=== PATIENT | female | born 1980 ===

== ENCOUNTER → 2024-01-11 01:13 | Outpatient (CLI) | payer OTHER, SELFPAY ==
[2024-01-11] MEDS: Normal Saline Flush 10 ML SYR IVP (15:05)
[2024-01-11] MEDS: Gadoterate meglumine 20 ML SYRINGE IVP (15:05)
--- NOTE | 2024-01-11 15:20 | DI.MRI_ITS ---
Exam(s) MR ANGIO BRAIN WO CLINICAL HISTORY: BENIGN INTRACRANIAL HYPERTENSION,G93.2. TECHNIQUE: 3D [id number] study was performed without contrast. COMPARISON: None. FINDINGS: Carotid Arteries: Petrous: Normal. Cavernous: Normal. Cerebral: Normal. Middle Cerebral Arteries: Right: No aneurysm or significant stenosis. Left: No aneurysm or significant stenosis. Anterior Cerebral Arteries: Right: No aneurysm or significant stenosis. Left: No aneurysm or significant stenosis. Posterior cerebral arteries: Right: No aneurysm or significant stenosis Left: No aneurysm or significant stenosis Vertebral Arteries: Right: No aneurysm or significant stenosis. No dissection. Left: No aneurysm or significant stenosis. No dissection.. Basilar Artery: No aneurysm or significant stenosis. Small Vessels: No evidence of beading. IMPRESSION: Normal MRA examination of the [place]. DATA REPOSITORY:
--- NOTE | 2024-01-11 16:00 | DI.MRI_ITS ---
Exam(s) MR BRAIN WO/W EXAM: MR BRAIN WO/W CLINICAL HISTORY: BENIGN INTRACRANIAL HYPERTENSION,G93.2. TECHNIQUE: Multiplanar multisequence MRI of the brain was performed. CONTRAST MATERIAL: IV Contrast: 20 ML of Dotarem contrast administered. COMPARISON: MR MR ANGIO BRAIN WO from 01/11/2024 FINDINGS: Exam mildly limited by motion. VENTRICLES AND EXTRA AXIAL SPACES: Mild ventricular asymmetry, within normal limits of variation. HEMORRHAGE: None. CEREBRAL PARENCHYMA: No focus of restricted diffusion to suggest acute infarct. No space-occupying le ignacio identified. There are a few small high signal foci in the white matter in the right parietal lo be, which are nonspecific could represent sequela of microvascular changes or prior infection. MIDLINE SHIFT: None. BRAINSTEM/CEREBELLUM: Normal. CALVARIUM: Normal. ENHANCEMENT: No suspicious enhancement identified. VISUALIZED PARANASAL SINUSES/MASTOIDS: Opacification of the left frontal sinus and multiple left ethm oid sinuses. Orbits: Unremarkable. Pituitary: Normal. Vasculature: Normal flow voids. IMPRESSION: High signal foci in the white matter right parietal lobe may represent sequela of microvascular disea se or prior infection. Left frontal ethmoid sinus disease. DATA REPOSITORY:
== END ==
PROVIDERS: Visit Provider Physician Assistant
DX: G93.2 Benign intracranial hypertension (principal)
CPT/HCPCS: 70544; 70553